=== PATIENT | female | born 1980 | race Two or more races ===

== ENCOUNTER 2019-09-09 18:52 | Emergency (ER) | payer MEDICAID ==
[~2019-09-09] VITALS: Ht 160 cm; Wt 82.0 kg
[2019-09-09] MEDS ORDERED: IBUPROFEN 600MG TABLET PO ONE (23:30)
[2019-09-09] MEDS ORDERED: ONDANSETRON 4MG ODT PO ONE (23:30)
[2019-09-10 02:55] VITALS: BP 128/75
== END 2019-09-10 02:56 | disposition home or self-care (01) ==
LOC: ER 18:52
DX: R51 Headache (principal); K08.89 Other specified disorders of teeth and supporting structures; Z88.3 Allergy status to other anti-infective agents
CPT/HCPCS: 70450; 81025; 99284; Q0162